=== PATIENT | male | born 1975 | race African-American/Black ===

== ENCOUNTER 2024-09-18 10:16 | Inpatient (IN) | payer OTHER ==
[2024-09-18 10:29] VITALS: TEMP 98.1; BMI 22.4
[2024-09-18 11:41] LABS: BASO % 0.4 % (0-2.0); EOS % 1.8 % (0-4.5); HEMATOCRIT 46.9 % (35.4-49); HEMOGLOBIN 15.5 GM/dL (11.7-16.9); LYMPH % 22.9 % (8-40); MCH 29.2 pg (25.7-33.7); MCHC 33.1 g/dl (32.0-35.9); MEAN CELL VOLUME 88.2 fl (80-96); MEAN PLT VOLUME 8.9 fl (7.5-11.1); NEUT % 65.9 % (42.8-82.8); PLATELET COUNT 211 10^3/uL (134-434); RBC 5.32 M/mm3 (4.00-5.60); WHITE BLOOD COUNT 5.8 K/mm3 (4.0-10.0)
[2024-09-18 11:45] LABS: INR 0.99 (0.83-1.09); PROTHROMBIN TIME (PATIENT) 11.2 SEC (9.7-13.0)
[2024-09-18 12:26] LABS: POTASSIUM 4.7 mmol/L (3.5-5.1)
[2024-09-18 12:28] LABS: ALBUMIN 4.2 g/dl (3.4-5.0); BLOOD UREA NITROGEN 10.1 mg/dL (7-18); CALCIUM 9.3 mg/dL (8.5-10.1)
[2024-09-18 12:32] LABS: CREATININE 1.1 mg/dL (0.55-1.3)
[2024-09-18 12:33] LABS: BILIRUBIN,TOTAL 0.6 mg/dL (0.2-1); TOT PROT 7.8 g/dl (6.4-8.2)
[2024-09-18] MEDS: methylPREDNISolone 8 MG TABLET PO ONE (14:27)
[2024-09-18 15:00] VITALS: BP 141/82; PULSE 58; RESP 20
[2024-09-19] MEDS ORDERED: INSULIN (LEVEMIR) 100 UNITS/ML UNITS SQ ONE (06:58)
[2024-09-19] MEDS ORDERED: INSULIN ASPART SLIDING SCALE (NOVOLOG) 1 VIAL SQ ONE (06:58)
== END 2024-09-18 16:49 | disposition left against medical advice (07) | DRG 48 ==
LOC: JER 10:16 → JERBED 12:07
PROVIDERS: ADMIT Internal Medicine; ATTEND Internal Medicine
DX: M54.12 Radiculopathy, cervical region (principal); M54.2 Cervicalgia; M79.622 Pain in left upper arm; R20.0 Anesthesia of skin
CPT/HCPCS: 36415; 80053; 85025; 85610; 85730; 86850; 86900; 86901; 93005; 93010; 99285-25